=== PATIENT | female | born 1985 | race Caucasian/White ===

== ENCOUNTER 2018-07-27 07:16 | Emergency (ER) | payer OTHER ==
[~2018-07-27] VITALS: Ht 154.9 cm; Wt 81.8 kg
[2018-07-27 09:19] VITALS: BP 121/81
== END 2018-07-27 09:37 | disposition home or self-care (01) ==
LOC: EMS 07:18 → EDBD 07:18 → EDSEX 07:18 → EMS 09:37
DX: F32.9 Major depressive disorder, single episode, unspecified (principal)
CPT/HCPCS: 99285